=== PATIENT | female | born 1955 | race Caucasian/White ===

== ENCOUNTER 2020-02-06 16:36 | Emergency (ER) | payer OTHER ==
[~2020-02-06] VITALS: Ht 170.1 cm; Wt 92.5 kg
[2020-02-06] MEDS ORDERED: LACTATED RINGERS 1,000 ML IV ONE (17:27)
[2020-02-06] MEDS ORDERED: ONDANSETRON 4 MG/2 ML (SDV) Z0FRAN ONE ×2 (17:27→19:21)
[2020-02-06 17:55] LABS: BASOPHILS % (AUTO) 0 % (0-10); EOSINOPHILS % (AUTO) 0 % (0-10); HEMATOCRIT 46 % (35-52); HEMOGLOBIN 14.9 g/dL (11.5-16.0); LYMPHOCYTES # (AUTO) 1.2 10^3/uL (1.0-4.0); LYMPHOCYTES % (AUTO) 12 % (12-44); MEAN CORPUSCULAR HEMOGLOBIN 30 pg (25-34); MEAN CORPUSCULAR HGB CONC 33 g/dL (32-36); MEAN CORPUSCULAR VOLUME 91 fL (80-99); MEAN PLATELET VOLUME 10.5 fL (9.0-12.2); MONOCYTES # (AUTO) 0.8 10^3/uL (0.0-1.0); MONOCYTES % (AUTO) 8 % (0-12); NEUTROPHILS # (AUTO) 7.6 10^3/uL (1.8-7.8); NEUTROPHILS % (AUTO) 79 % (42-75); PLATELET COUNT 229 10^3/uL (130-400); WHITE BLOOD COUNT 9.6 10^3/uL (4.3-11.0)
[2020-02-06 17:59] LABS: ALBUMIN 4.4 GM/DL (3.2-4.5); CHLORIDE 99 MMOL/L (98-107); POTASSIUM 3.9 MMOL/L (3.6-5.0); SODIUM 137 MMOL/L (135-145)
[2020-02-06 18:02] LABS: GLUCOSE 187 MG/DL (70-105); TOTAL PROTEIN 7.6 GM/DL (6.4-8.2)
[2020-02-06 18:03] LABS: CARBON DIOXIDE 22 MMOL/L (21-32)
[2020-02-06 18:05] LABS: ALKALINE PHOSPHATASE 72 U/L (40-136); CREATININE SERUM 0.79 MG/DL (0.60-1.30); GFR ESTIMATED > 60
[2020-02-06 18:06] LABS: BUN/CREATININE RATIO 13
[2020-02-06 18:08] LABS: ALANINE AMINOTRANSFERASE 32 U/L (0-55)
[2020-02-06 18:09] LABS: LIPASE 16 U/L (8-78)
--- NOTE | 2020-02-06 18:31 | ED Abdominal Pain ---
General Chief Complaint: Abdominal/GI Problems Stated Complaint: N/V/WEAKNESS History of Present Illness Date Seen by Provider: Feb 06, 2020 Time Seen by Provider: 18:30 Initial Comments This is a 64-year-old female presents to ER with complaints of right lower quadrant abdominal pain has been present 2 days. States she was eating dinner on Friday evening and became nauseous and vomited. States pain has persisted over the past 2 days, describes as constant sharp pain localized in her right lower quadrant. Rates 8/10 at this time. Denies fevers, chills, cough, shortness of breath, chest pain. Timing/Duration: 1-2 Days Severity/Quality: Moderate Location: RLQ Activities at Onset: None Allergies and Home Medications Allergies Coded Allergies: NSAIDS (Non-Steroidal Anti-Inflamma (Verified Allergy, Mild, 02/06/20) "worsens kidney function" iodine (Verified Allergy, Mild, Hives, 02/06/20) metformin (Verified Allergy, Mild, Hives, 02/06/20) oxycodone (Verified Allergy, Mild, Hives, 02/06/20) lisinopril (Verified Adverse Reaction, Unknown, 02/06/20) Cough Home Medications Hydrocodone/Acetaminophen 1 Each Tablet, 1 EACH PO Q6H PRN for PAIN-BREAKTHROUGH Prescribed by: RIVAS GRANT on 02/06/202122 Levofloxacin 500 Mg Tablet, 500 MG PO DAILY Prescribed by: RIVAS GRANT on 02/06/202121 Ondansetron 4 Mg Tab.rapdis, 4 MG PO Q4H PRN for NAUSEA/VOMITING Prescribed by: RIVAS GRANT on 02/06/202121 Patient Home Medication List Home Medication List Reviewed: Yes Review of Systems Review of Systems Constitutional: no symptoms reported EENTM: No Symptoms Reported Respiratory: No Symptoms Reported Cardiovascular: No Symptoms Reported Gastrointestinal: See HPI Genitourinary: No Symptoms Reported Musculoskeletal: no symptoms reported Skin: no symptoms reported Psychiatric/Neurological: No Symptoms Reported Endocrine: No Symptoms Reported Hematologic/Lymphatic: No Symptoms Reported Past Ekleuwg-Uvnreo-Mjmezo Hx Patient Social History Recent Foreign Travel: No Contact w/Someone Who Travel: No Physical Exam Vital Signs Vital Signs - First Documented 02/06/20 17:06 Temp 37.7 Pulse 101 Resp 18 B/P (MAP) 166/94 (118) Pulse Ox 94 O2 Delivery Room Air Capillary Refill : Height/Weight/BMI Height: '" Weight: lbs. oz. kg; BMI Method: General Appearance: WD/WN, no apparent distress HEENT: PERRL/EOMI, pharynx normal Neck: full range of motion, normal inspection Respiratory: normal breath sounds, no respiratory distress, no accessory muscle use, decreased breath sounds (bilateral bases) Cardiovascular: regular rate, rhythm, no murmur Peripheral Pulses: 2+ Radial Pulses (R), 2+ Radial Pulses (L) Gastrointestinal: normal bowel sounds, soft, no pulsatile mass, guarding, rebound, tenderness (right lower quadrant) Extremities: normal range of motion, normal inspection Neurologic/Psychiatric: no motor/sensory deficits, alert, normal mood/affect, oriented x 3 Skin: normal color, warm/dry Progress/Results/Core Measures Results/Orders Lab Results Laboratory Tests Test 02/06/20 17:00 02/06/20 17:20 02/06/20 21:15 Range/Units Lactate Dehydrogenase 273 H 125-220 U/L Total Creatine Kinase 32 29-168 U/L C-Reactive Protein High Sensitivity 5.87 H 0.00-0.50 MG/DL White Blood Count 9.6 4.3-11.0 10^3/uL Red Blood Count 5.05 3.80-5.11 10^6/uL Hemoglobin 14.9 11.5-16.0 g/dL Hematocrit 46 35-52 % Mean Corpuscular Volume 91 80-99 fL Mean Corpuscular Hemoglobin 30 25-34 pg Mean Corpuscular Hemoglobin Concent 33 32-36 g/dL Red Cell Distribution Width 12.9 10.0-14.5 % Platelet Count 229 130-400 10^3/uL Mean Platelet Volume 10.5 9.0-12.2 fL Immature Granulocyte % (Auto) 0 % Neutrophils (%) (Auto) 79 H 42-75 % Lymphocytes (%) (Auto) 12 12-44 % Monocytes (%) (Auto) 8 0-12 % Eosinophils (%) (Auto) 0 0-10 % Basophils (%) (Auto) 0 0-10 % Neutrophils # (Auto) 7.6 1.8-7.8 10^3/uL Lymphocytes # (Auto) 1.2 1.0-4.0 10^3/uL Monocytes # (Auto) 0.8 0.0-1.0 10^3/uL Eosinophils # (Auto) 0.0 0.0-0.3 10^3/uL Basophils # (Auto) 0.0 0.0-0.1 10^3/uL Immature Granulocyte # (Auto) 0.0 0.0-0.1 10^3/uL Sodium Level 137 135-145 MMOL/L Potassium Level 3.9 3.6-5.0 MMOL/L Chloride Level 99 98-107 MMOL/L Carbon Dioxide Level 22 21-32 MMOL/L Anion Gap 16 H 5-14 MMOL/L Blood Urea Nitrogen 10 7-18 MG/DL Creatinine 0.79 0.60-1.30 MG/DL Estimat Glomerular Filtration Rate > 60 BUN/Creatinine Ratio 13 Glucose Level 187 H 70-105 MG/DL Calcium Level 9.0 8.5-10.1 MG/DL Corrected Calcium 8.7 8.5-10.1 MG/DL Total Bilirubin 1.0 0.1-1.0 MG/DL Aspartate Amino Transf (AST/SGOT) 20 5-34 U/L Alanine Aminotransferase (ALT/SGPT) 32 0-55 U/L Alkaline Phosphatase 72 40-136 U/L Troponin I < 0.028 <0.028 NG/ML Total Protein 7.6 6.4-8.2 GM/DL Albumin 4.4 3.2-4.5 GM/DL Lipase 16 8-78 U/L Urine Color YELLOW Urine Clarity SL CLOUDY Urine pH 7.0 5-9 Urine Specific Gypsum 1.010 L 1.016-1.022 Urine Protein 1+ H NEGATIVE Urine Glucose (UA) NEGATIVE NEGATIVE Urine Ketones NEGATIVE NEGATIVE Urine Nitrite POSITIVE H NEGATIVE Urine Bilirubin NEGATIVE NEGATIVE Urine Urobilinogen 0.2 < = 1.0 MG/DL Urine Leukocyte Esterase 3+ H NEGATIVE Urine RBC (Auto) 1+ H NEGATIVE Urine RBC RARE /HPF Urine WBC >100 H /HPF Urine Squamous Epithelial Cells 0-2 /HPF Urine Crystals NONE /LPF Urine Bacteria LARGE H /HPF Urine Casts NONE /LPF Urine Mucus NEGATIVE /LPF Urine Culture Indicated YES My Orders Orders - RIVAS GRANT [employer] Lactated Ringers (Lr 1000 Ml Iv Solution (02/06/20 17:27) Ondansetron Injection (Zofran Injectio (02/06/20 17:27) Cbc With Automated Diff (02/06/20 17:50) Comprehensive Metabolic Panel (02/06/20 17:50) Lipase (02/06/20 17:50) Troponin I (02/06/20 17:50) Ct Abdomen/Pelvis Wo (02/06/20 18:26) Fentanyl Injection (Sublimaze Injection (02/06/20 19:00) Ua Culture If Indicated (02/06/20 19:06) LDH (02/06/20 19:14) Creatine Kinase (02/06/20 19:14) Hs C Reactive Protein (02/06/20 19:14) Ondansetron Injection (Zofran Injectio (02/06/20 19:30) Ondansetron Injection (Zofran Injectio (02/06/20 19:21) Chest Pa/Lat (2 View) (02/06/20 19:26) Fentanyl Injection (Sublimaze Injection (02/06/20 19:45) Hydrocodone/Apap 5/325 Tablet (Lortab 5 (02/06/20 21:15) Levofloxacin Tablet (Levaquin Tablet) (02/06/20 21:15) Rx-Ondansetron Po (Rx-Zofran Po) (02/06/20 21:14) Urine Culture (02/06/20 21:15) Medications Given in ED Current Medications Medications Dose Ordered Sig/Angela Route Start Time Stop Time Status Last Admin Dose Admin Fentanyl Citrate 25 mcg ONCE ONCE IVP 02/06/20 19:00 02/06/20 19:01 DC 02/06/20 19:17 25 MCG Fentanyl Citrate 25 mcg ONCE ONCE IVP 02/06/20 19:45 02/06/20 19:46 DC 02/06/20 19:48 25 MCG Lactated Ringer's 1,000 ml @ ud STK-MED ONCE IV 02/06/20 17:27 02/06/20 17:30 DC 02/06/20 17:34 1,000 MLS/HR Ondansetron HCl 4 mg STK-MED ONCE .ROUTE 02/06/20 17:27 02/06/20 17:30 DC 02/06/20 17:34 8 MG Ondansetron HCl 4 mg STK-MED ONCE .ROUTE 02/06/20 19:21 02/06/20 19:24 DC 02/06/20 19:26 4 MG Vital Signs/I&O 02/06/20 02/06/20 17:06 21:40 Temp 37.7 37.7 Pulse 101 82 Resp 18 18 B/P (MAP) 166/94 (118) 183/87 (118) Pulse Ox 94 94 O2 Delivery Room Air Room Air 02/07/20 00:00 Intake Total 1000 ml Balance 1000 ml Progress Progress Note : Progress Note Basic labs ordered, 1 liter of LR and Zofran 4mg IVP. Labs reviewed and are unremarkable. Pending. UA. Received 2 doses of fentanyl 25mcg IVP which did improve symptoms. CT abd/pelvis without contrast (states she is allergic to contrast media) shows dilatation of the right renal pelvis and mild perinephric stranding about the right kidney suggesting partial obstruction. Additionally there appears to be mild pneumonia/atelectasis in the left lung. Reviewed findings with her, recommended taking Levaquin for pneumonia and possible UTI with partial renal obstruction (still pending UA). Discussed taking hydrocodone 5/325mg every 6 hours as needed for pain and Zofran every 4 mg as needed for nausea. Offered to discussed case with Dr. Cook with urology and set up outpatient renal ultrasound here tomorrow. However, she states she has an appointment with her primary care provider in the morning in and would prefer to have all of her care in [place]. Take home Zofran pack provided. Reviewed UA after patient discharged which does show a significant urinary tract infection. She was discharged with first dose of Levaquin in ED and prescription. Culture to follow. Diagnostic Imaging Diagonstic Imaging: CT Plain Films/CT/US/NM/MRI: abdomen Comments NAME: SUMMER MANDUJANO [facility] REC#: [id number] PT STATUS: DEP ER : 1955 PHYSICIAN: RIVAS GRANT APRN ADMIT DATE: 02/06/20/ER Signed Date of Exam:02/06/20 CT ABDOMEN/PELVIS WO PROCEDURE: CT abdomen and pelvis without contrast. TECHNIQUE: Multiple contiguous axial images were obtained through the abdomen and pelvis without the use of intravenous contrast. Auto Exposure Controls were utilized during the CT exam to meet ALARA standards for radiation dose reduction. INDICATION: Right-sided flank pain. COMPARISON: There is no prior study available for comparison. FINDINGS: By history, the uterus and appendix are surgically absent. There is dilatation of the right renal pelvis and there is mild distortion of the perinephric fat about the right kidney. While these findings do suggest mild obstruction there is no clear evidence for an obstructive calculus. 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 This could also be related to the recent passage of a calculus. Clinical follow-up is recommended. There is no evidence for nephrolithiasis and there is no sign of obstruction of the left collecting system. There is a 2 cm exophytic nodular density along the posterior aspect of the left kidney. This could be related to the left renal cortex, itself. The possibility that there is a small solid mass in this area should also be considered. Ultrasound would be recommended for further evaluation. There is diverticulosis of the sigmoid colon but there is no sign of acute diverticulitis. The urinary bladder is grossly unremarkable. The liver, spleen, pancreas, adrenals, aorta and inferior vena cava show no sign of an acute abnormality. There may be some sludge within the gallbladder. The stomach is not well distended and difficult to assess. The lung bases do show a small patchy area of increased density in the left lower lobe. The possibility that this is related to mild pneumonia/atelectasis should be considered. There is no acute bony abnormality identified. IMPRESSION: 1. There is dilatation of the right renal pelvis and the mild perinephric stranding about the right kidney does suggest partial obstruction. However, there is no sign of an obstructive calculus. Additional considerations as above. 2. The small nodular density along the posterior aspect of the left kidney may well be due to the renal parenchyma alone. 3. The possibility that there is an underlying solid mass in this area should still be considered. Recommendations as above. 4. There is no acute abnormality of the abdomen or pelvis noted otherwise. 5. There does appear to be mild pneumonia/atelectasis in the left lung base. Clinical follow-up is recommended. Dictated by: Dictated on workstation # [id number] Dict: 02/06/20 1859 Trans: 02/06/202249 [facility] [phone] Interpreted by: NIKHIL BLAIR MD Electronically signed by: NIKHIL BLAIR MD 02/06/202249 Diagonstic Imaging: Xray Plain Films/CT/US/NM/MRI: chest Comments NAME: SUMMER MANDUJANO [facility] REC#: [id number] PT STATUS: DEP ER : 1955 PHYSICIAN: RIVAS GRANT APRN ADMIT DATE: 02/06/20/ER Signed Date of Exam:02/06/20 CHEST PA/LAT (2 VIEW) INDICATION: Abdominal pain and chest pain. EXAMINATION: PA and lateral chest at 7:44 p.m. COMPARISON: There is no prior chest examination available for comparison. FINDINGS: The CT abdomen/pelvis exam performed earlier today did suggest mild pneumonia/atelectasis involving the left lung base. On this study, there is a vague area of slightly increased density overlying the left lower lobe. Most likely this is related to mild pneumonia/atelectasis. The left upper lung and right lung are generally clear. The heart size is within normal limits. The mediastinum is not widened. The osseous structures are intact. IMPRESSION: 1. There is mild left lower lobe pneumonia/atelectasis. Clinical follow-up is recommended. 2. There is no acute cardiopulmonary abnormality noted otherwise. 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 Decision time for Depature: 21:17 Referrals: NO,LOCAL PHYSICIAN (PCP/Family) Primary Care Physician Patient Instructions: Community-Acquired Pneumonia in Adults, Renal Colic (DC) Add. Discharge Instructions: Plan: 1. Discharge home. Keep follow up with your primary care provider tomorrow as previously scheduled. 2. Need to schedule renal ultrasound, copy of CT report sent with you. 3. Take Levaquin 500mg by mouth daily as directed. 4. Hydrocodone 5/325mg by mouth every 6 hours as needed for pain. 5. Zofran 4mg by mouth as needed for nausea. 6. Return to ER for any new, worsening, or concerning symptoms. All discharge instructions reviewed with patient and/or family. Voiced understanding. Scripts Hydrocodone/Acetaminophen (Hydrocodone-Acetamin 5-325 mg) 1 Each Tablet 1 EACH PO Q6H PRN for PAIN-BREAKTHROUGH for 5 Days, #20 TAB 0 Refills Prov: RIVAS GRANT APRN 02/06/20 Ondansetron (Ondansetron Odt) 4 Mg Tab.rapdis 4 MG PO Q4H PRN for NAUSEA/VOMITING for 5 Days, #30 TAB 0 Refills Prov: RIVAS GRANT [employer] 02/06/20 Levofloxacin (Levofloxacin) 500 Mg Tablet 500 MG PO DAILY for 7 Days, #7 TAB 0 Refills Prov: RIVAS GRANT [employer] 02/06/20 RIVAS GRANT APRN Feb 06, 2020 18:31
[2020-02-06] MEDS ORDERED: fentaNYL INJECTION 100 MCG/2 ML AMP IVP ONE ×2 (19:00→19:45)
--- NOTE | 2020-02-06 19:14 | Diagnostic Imaging Report ---
PROCEDURE: CT abdomen and pelvis without contrast. TECHNIQUE: Multiple contiguous axial images were obtained through the abdomen and pelvis without the use of intravenous contrast. Auto Exposure Controls were utilized during the CT exam to meet ALARA standards for radiation dose reduction. INDICATION: Right-sided flank pain. COMPARISON: There is no prior study available for comparison. FINDINGS: By history, the uterus and appendix are surgically absent. There is dilatation of the right renal pelvis and there is mild distortion of the perinephric fat about the right kidney. While these findings do suggest mild obstruction there is no clear evidence for an obstructive calculus. 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 This could also be related to the recent passage of a calculus. Clinical follow-up is recommended. There is no evidence for nephrolithiasis and there is no sign of obstruction of the left collecting system. There is a 2 cm exophytic nodular density along the posterior aspect of the left kidney. This could be related to the left renal cortex, itself. The possibility that there is a small solid mass in this area should also be considered. Ultrasound would be recommended for further evaluation. There is diverticulosis of the sigmoid colon but there is no sign of acute diverticulitis. The urinary bladder is grossly unremarkable. The liver, spleen, pancreas, adrenals, aorta and inferior vena cava show no sign of an acute abnormality. There may be some sludge within the gallbladder. The stomach is not well distended and difficult to assess. The lung bases do show a small patchy area of increased density in the left lower lobe. The possibility that this is related to mild pneumonia/atelectasis should be considered. There is no acute bony abnormality identified. IMPRESSION: 1. There is dilatation of the right renal pelvis and the mild perinephric stranding about the right kidney does suggest partial obstruction. However, there is no sign of an obstructive calculus. Additional considerations as above. 2. The small nodular density along the posterior aspect of the left kidney may well be due to the renal parenchyma alone. 3. The possibility that there is an underlying solid mass in this area should still be considered. Recommendations as above. 4. There is no acute abnormality of the abdomen or pelvis noted otherwise. 5. There does appear to be mild pneumonia/atelectasis in the left lung base. Clinical follow-up is recommended. Dictated by: Dictated on workstation # [id number]
[2020-02-06] MEDS ORDERED: ONDANSETRON 4 MG/2 ML (SDV) Z0FRAN IVP ONE (19:30)
--- NOTE | 2020-02-06 20:09 | Diagnostic Imaging Report ---
INDICATION: Abdominal pain and chest pain. EXAMINATION: PA and lateral chest at 7:44 p.m. COMPARISON: There is no prior chest examination available for comparison. FINDINGS: The CT abdomen/pelvis exam performed earlier today did suggest mild pneumonia/atelectasis involving the left lung base. On this study, there is a vague area of slightly increased density overlying the left lower lobe. Most likely this is related to mild pneumonia/atelectasis. The left upper lung and right lung are generally clear. The heart size is within normal limits. The mediastinum is not widened. The osseous structures are intact. IMPRESSION: 1. There is mild left lower lobe pneumonia/atelectasis. Clinical follow-up is recommended. 2. There is no acute cardiopulmonary abnormality noted otherwise. Dictated by: Dictated on workstation # [id number]
[2020-02-06] MEDS ORDERED: RX-ONDANSETRON 4 MG ODT (ZOFRAN) PPK #4 PO STA (21:14)
[2020-02-06] MEDS ORDERED: LEVOFLOXACIN 500 MG TAB (LEVAQUIN) PO ONE (21:15)
[2020-02-06] MEDS ORDERED: HYDROcodone/APAP 5 MG/325 MG (LORTAB) TAB PO ONE (21:15)
[2020-02-06] MEDS ORDERED: LEVO500T80 PO (21:22)
[2020-02-06] MEDS ORDERED: ONDA4TAB11 PO (21:22)
[2020-02-06] MEDS ORDERED: ACHD5005 PO (21:23)
[2020-02-06 21:27] LABS: BILIRUBIN,URINE NEGATIVE (NEGATIVE); CLARITY,URINE SL CLOUDY; COLOR,URINE YELLOW; GLUCOSE, URINE (UA) NEGATIVE (NEGATIVE); KETONES,URINE NEGATIVE (NEGATIVE); LEUKOCYTE ESTERASE ,URINE 3+ (NEGATIVE); NITRITE,URINE POSITIVE (NEGATIVE); PROTEIN,URINE 1+ (NEGATIVE)
[2020-02-06 21:40] VITALS: BP 183/87
[2020-02-06 21:47] LABS: BACTERIA,URINE LARGE /HPF; RBC,URINE RARE /HPF; SQUAMOUS EPITHELIAL CELL,UR 0-2 /HPF; WBC,URINE >100 /HPF
== END 2020-02-06 21:40 | disposition home or self-care (01) ==
LOC: EDUNIT# 16:36 → ER 16:37
DX: J18.9 Pneumonia, unspecified organism (principal); Q62.39 Other obstructive defects of renal pelvis and ureter; Z88.6 Allergy status to analgesic agent; Z91.041 Radiographic dye allergy status; Z88.5 Allergy status to narcotic agent; Z88.8 Allergy status to other drugs, medicaments and biological substances
CPT/HCPCS: 36415; 71046; 74176; 80053; 81000; 82550; 83615; 83690; 84484; 85025; 86141; 87088; 87186